=== PATIENT | female | born 1960 | race Caucasian/White ===

== ENCOUNTER 2018-06-21 04:45 | Emergency (ER) | payer OTHER ==
[2018-06-21 05:06] VITALS: BP 139/62; PULSE 64; TEMP 97.5; BMI 21.9
[2018-06-21] MEDS ORDERED: ONDANSETRON *ODT* 4 MG TABLET ONE (05:20)
[2018-06-21] MEDS ORDERED: MECLIZINE HCL 25 MG TABLET (FP) ONE (05:21)
--- NOTE | 2018-06-21 05:22 | PDOC ---
History of Present Illness - General Chief Complaint: Lightheaded Stated Complaint: ROOM IS SPINNING Time Seen by Provider: 06/21/18 05:11 History Source: Patient Exam Limitations: Language Barrier - History of Present Illness Initial Comments: 06/21/18 05:22 This is a 49-year-old female who comes in complaining of spinning sensation whenever she tries to change her position. Patient said spinning is associated with some nausea and vomiting. Patient has a mild upper respiratory tract infection at this time and said this started yesterday. Patient said symptoms are worse at night. She denies any fevers or chills. She denies any tinnitus. She denies history of similar symptoms in the past. She denies any other neurological complaints of numbness or weakness. Patient is otherwise healthy. History was via an dealmaker who came with the patient. I also spoke with her daughter on the phone and explained what was going on to her daughter on the phone. PAST MEDICAL HISTORY: no significant history PAST SURGICAL HISTORY: no significant history FAMILY HISTORY: no pertinant history SOCIAL HISTORY: Pt lives with family and is employed. MEDICATIONS: reviewed ALLERGIES: As per nursing notes ROS General: No fevers or chills, no weakness, no weight loss HEENT: No change in vision. No sore throat,. No ear pain CardioVascular: No chest pain or shortness of breath Respiratory:mild URI Gastrointestinal: + nausea, + vomiting, no diarrhea or constipation, No rectal bleeding Genitourinary: No dysuria, hematuria, or frequency Musculoskeletal: . No joint pain or swelling Neurologic: No headache, +vertigo, +dizziness, no loss of consciousness Psychiatric: no depression Skin: No rashes or easy bruising Endocrine: no increased thirst or abnormal weight change Allergic: no skin or latex allergy All other systems reviewed and normal GENERAL: The patient is awake, alert, and fully oriented, in no acute distress. HEAD: Normal with no signs of trauma. EARS: Bilateral ears are normal with normal external canal. and tympanic membranes. EYES: Pupils equal, round and reactive to light, extraocular movements intact, sclera anicteric, conjunctiva clear. EXTREMITIES: Normal range of motion, no edema. NEUROLOGICAL: Normal speech, normal gait. grossly intact PSYCH: Normal mood, normal affect. SKIN: Warm, Dry, normal turgor, no rashes or lesions noted. NEURO: Mental status: The patient alert and is oriented x3. Cranial nerves: Cranial nerves II through XII are intact Fundiscopic exam normal Motor: The upper extremities are 5 over 5 in all muscle groups. The lower extremities are 5 over 5 in all muscle groups. Sensation: Sensation is intact to light touch throughout. Cerebellar: Vfowkc-[id number] is normal in both upper extremities. Heel-knee- shah is normal in both lower extremities. Gait: Patient able to ambulate however positional changes makes the vertigo worse so not fully tested. Assessment and plan: This is a 57-year-old female with a viral upper respiratory tract infection who has now developed some vertigo. Patient given Zofran and meclizine. 06/21/18 05:47 Patient symptoms have resolved. Patient able to tolerate by mouth's. Patient told to take sure she drinks plenty of fluids and stays well-hydrated. Patient' s prescriptions for meclizine and Zofran sent to her pharmacy patient has a friend with her to drive her home. Past History - Past Medical History Allergies/Adverse Reactions: Allergies Allergy/AdvReac Type Severity Reaction Status Date / Time Penicillins Allergy Verified 03/07/16 17:12 Home Medications: Ambulatory Orders Meclizine HCl [Antivert -] 25 mg PO QID #42 tablet 06/21/18 Ondansetron [Zofran Odt -] 4 mg SL TID #21 od.tablet 06/21/18 COPD: No GI Disorders: Yes (GERD,GASTRITIS,BENIGN POLYPS) - Suicide/Smoking/Psychosocial Hx Smoking History: Never smoked Hx Alcohol Use: No Drug/Substance Use Hx: No Substance Use Type: None *Physical Exam - Vital Signs Last Vital Signs Temp Pulse Resp BP Pulse Ox 97.5 F L 64 16 139/62 98 06/21/18 05:02 06/21/18 05:02 06/21/18 05:02 06/21/18 05:02 06/21/18 05:02 *DC/Admit/Observation/Transfer Diagnosis at time of Disposition: Benign positional vertigo Qualifiers: Laterality: unspecified laterality Qualified Code(s): H81.10 - Benign paroxysmal vertigo, unspecified ear - Discharge Dispostion Disposition: HOME Condition at time of disposition: Stable Decision to Admit order: No - Prescriptions Prescriptions: Meclizine HCl [Antivert -] 25 mg PO QID #42 tablet Ondansetron [Zofran Odt -] 4 mg SL TID #21 od.tablet - Referrals Referrals: Renzo Cabrera [Primary Care Provider] - - Patient Instructions Printed Discharge Instructions: DI for Benign Paroxysmal Positional Vertigo Additional Instructions: For the vertigo you can take meclizine 1 tablet as often as every 4-6 hours as needed. For the nausea take Zofran 1 tablet as often as every 6-8 hours Return to the emergency department immediately with ANY new, persistent or worsening symptoms. Continue any medications as previously prescribed by your physician. You should follow up with your primary doctor as soon as possible regarding today's emergency department visit. . Please make sure your doctor reviews the results of your emergency evaluation. Thank you for coming to the Emergency Department today for your care. It was a pleasure to see you today. Please note that your evaluation is INCOMPLETE until you follow-up with your doctor. - Post Discharge Activity
[2018-06-21] MEDS ORDERED: ONDANSETRON 8 MG TABLET (FP) PO ONE (05:25)
[2018-06-21] MEDS ORDERED: MECLIZINE HCL 25 MG TABLET (FP) PO ONE (05:28)
== END 2018-06-21 05:48 | disposition home or self-care (01) ==
LOC: FER 04:45
DX: H81.10 Benign paroxysmal vertigo, unspecified ear (principal); K21.9 Gastro-esophageal reflux disease without esophagitis
CPT/HCPCS: 99282-25